=== PATIENT | male | born 1965 | race Caucasian/White ===

== ENCOUNTER → 2017-03-12 | Outpatient (CLI) | payer OTHER | LOC: M WUC 10:18 | PROVIDERS: ATTEND Physician Assistant | DX: S29.012A Strain of muscle and tendon of back wall of thorax, initial encounter (principal); X58.XXXA Exposure to other specified factors, initial encounter; Y93.9 Activity, unspecified; Y92.9 Unspecified place or not applicable; Y99.8 Other external cause status ==

== ENCOUNTER → 2019-05-04 | Outpatient (CLI) | payer BC, OTHER ==
--- NOTE | 2019-05-04 15:18 | REP ---
REASON FOR EXAM: Tobacco abuse. As per the protocol, only lung window images were sent to the read station for interpretation. There are no priors for comparison. There is evidence of biapical pleuroparenchymal scarring. There are no abnormal nodules, masses, or opacities. Grossly, the mediastinum and pulmonary les are within normal limits. Grossly, the imaged upper abdomen and imaged osseous structures are within normal limits. Lung-RADS category 1 exam. No abnormal nodule, however, there is evidence of biapical pleuroparenchymal scarring without priors for comparison. There is no revised Fleischner Society criteria on the recommendation for followup with this finding. I would recommend a 6-month followup to ensure stability. Electronically Signed by Hill Ruth DO 05/04/2019 05:08 P
== END ==
LOC: M RAD 08:49
PROVIDERS: ATTEND Physician Assistant
DX: Z12.2 Encounter for screening for malignant neoplasm of respiratory organs (principal); F17.210 Nicotine dependence, cigarettes, uncomplicated

== ENCOUNTER → 2019-05-25 | Outpatient (REF) | payer OTHER ==
[2019-05-28 00:06] LABS: A1A FOR PHENOTYPE 135 mg/dL (90-200)
== END ==
LOC: M LAB REF 13:49
PROVIDERS: ATTEND Internal Medicine Pulmonary Disease
DX: R91.8 Other nonspecific abnormal finding of lung field (principal)

== ENCOUNTER → 2019-11-30 | Outpatient (CLI) | payer BC, OTHER ==
--- NOTE | 2019-11-30 08:01 | REP ---
CT of the chest without IV contrast: Comparison is the low-dose lung screening chest CT dated 2018. There is biapical pleuroparenchymal scarring, stable and unchanged. There are no lung nodules or masses. There are no infiltrates or pleural effusions. There is no mediastinal or axillary lymph node enlargement. In the absence of IV contrast the study is insensitive for hilar lymph node enlargement. The unenhanced thoracic aorta is unremarkable. Cardiac size is normal. There is no pericardial effusion. Upper abdomen: The visualized unenhanced upper abdominal contents are unremarkable. There is no adrenal mass. Impression: There is stable biapical pleuroparenchymal scarring, unchanged. There are no lung nodules, masses, infiltrates or pleural effusions. There is no mediastinal or axillary lymph node enlargement. No significant interval change. Electronically Signed by William Miles MD 11/30/2019 07:52 A
== END ==
LOC: M RAD 07:20
PROVIDERS: ATTEND Internal Medicine Pulmonary Disease
DX: R91.8 Other nonspecific abnormal finding of lung field (principal)

== ENCOUNTER → 2020-11-28 | Outpatient (CLI) | payer BC, OTHER ==
--- NOTE | 2020-11-28 13:36 | REP ---
INDICATION: NICOTINE DEPEND COMPARISON: 11/30/2019, 05/04/2019 TECHNIQUE: Axial noncontrast images from the thoracic inlet to the upper abdomen using low-dose lung screening technique (LDCT). FINDINGS: Stable biapical scarring again noted. Lung whitt are otherwise clear and without acute consolidation, significant nodule or mass lesion. No effusion. No pneumothorax. Tracheobronchial tree is patent. IMPRESSION: Lung-RADS category 1. No suspicious nodule or mass lesion. Management recommendations include annual low-dose CT surveillance. <Electronically signed by Michael Mack > 11/28/20 [id number]
== END ==
LOC: M RAD 13:18
PROVIDERS: ATTEND Nurse Practitioner Family
DX: F17.210 Nicotine dependence, cigarettes, uncomplicated (principal)

== ENCOUNTER → 2021-10-30 | Outpatient (CLI) | payer BC, OTHER ==
[2021-10-30 14:21] LABS: ALBUMIN 3.8 GM/DL (3.2-5.2); ALT/SGPT 24 U/L (12-78); BILIRUBIN,TOTAL 0.4 MG/DL (0.2-1.0); BLOOD UREA NITROGEN 13 MG/DL (7-18); CALCIUM LEVEL 9.4 MG/DL (8.5-10.1); CARBON DIOXIDE LEVEL 30 MEQ/L (21-32); CHLORIDE LEVEL 102 MEQ/L (98-107); CHOLESTEROL LEVEL 171 MG/DL (<200); CREATININE FOR GFR 0.88 MG/DL (0.70-1.30); GLOMERULAR FILTRATION RATE > 60.0 (>56); GLUCOSE, FASTING 78 MG/DL (70-100); HDL CHOLESTEROL 45 MG/DL (>40); LDL CHOLESTEROL 103 MG/DL (<100); NON-HDL-C 126 MG/DL; POTASSIUM SERUM 3.9 MEQ/L (3.5-5.1); SODIUM LEVEL 136 MEQ/L (136-145); TOTAL PROTEIN 6.9 GM/DL (6.4-8.2); TRIGLYCERIDES LEVEL 115 MG/DL (<150)
== END ==
LOC: M LAB 13:00
PROVIDERS: ATTEND Nurse Practitioner Family
DX: E78.2 Mixed hyperlipidemia (principal)

== ENCOUNTER → 2021-12-17 | Outpatient (CLI) | payer BC, OTHER | LOC: M RAD 14:01 | PROVIDERS: ATTEND Nurse Practitioner Family | DX: Z12.2 Encounter for screening for malignant neoplasm of respiratory organs (principal); F17.210 Nicotine dependence, cigarettes, uncomplicated; R91.8 Other nonspecific abnormal finding of lung field ==

== ENCOUNTER → 2022-05-13 | Outpatient (CLI) | payer BC, OTHER ==
[~2022-05-13] MED LIST: CETI5SOL3 PO; ROSU20TA5 PO
== END ==
LOC: M LABSMTC 09:33
PROVIDERS: ATTEND Anesthesiology
DX: Z01.818 Encounter for other preprocedural examination (principal); Z11.52 Encounter for screening for COVID-19

== ENCOUNTER 2022-05-17 07:02 | Day surgery (SDC) | payer BC, OTHER ==
[~2022-05-17] VITALS: Ht 185.4 cm; Wt 72.9 kg
[~2022-05-17 07:02] MED LIST changes: +NS 1,000 ML IV ONE
[2022-05-17] MEDS ORDERED: propofoL 200 MG/20 ML VIAL As Ordered ONE ×2 (08:09→08:22)
[2022-05-17] MEDS ORDERED: LIDOCAINE 2% 100MG/5ML SDV (FOR ANES.) As Ordered ONE (08:09)
[2022-05-17] MEDS ORDERED: PHENYLephrine 500MCG 5ML (100MCG/ML) SYRINGE As Ordered ONE (08:22)
[2022-05-17 08:57] VITALS: BP 116/73
== END 2022-05-17 09:05 | disposition home or self-care (01) ==
LOC: M OPP 07:02
PROVIDERS: ATTEND Surgery
DX: D12.2 Benign neoplasm of ascending colon (principal); K63.5 Polyp of colon; R19.5 Other fecal abnormalities; E78.00 Pure hypercholesterolemia, unspecified; J44.9 Chronic obstructive pulmonary disease, unspecified; Z79.02 Long term (current) use of antithrombotics/antiplatelets; Z79.899 Other long term (current) drug therapy; Z80.0 Family history of malignant neoplasm of digestive organs; Z80.3 Family history of malignant neoplasm of breast; F17.200 Nicotine dependence, unspecified, uncomplicated
CPT/HCPCS: 45385; 88305; J2370

== ENCOUNTER → 2022-12-23 | Outpatient (CLI) | payer BC, OTHER ==
[~2022-12-23] MED LIST changes: -NS 1,000 ML IV ONE
== END ==
LOC: M RAD 07:37
PROVIDERS: ATTEND Nurse Practitioner Family
DX: Z12.2 Encounter for screening for malignant neoplasm of respiratory organs (principal); F17.210 Nicotine dependence, cigarettes, uncomplicated; R91.8 Other nonspecific abnormal finding of lung field

== ENCOUNTER → 2024-01-12 | Outpatient (CLI) | payer BC ==
[~2024-01-12] MED LIST changes: -ROSU20TA5 PO; +ROSU20TA61 PO
== END ==
LOC: M RAD 07:46
PROVIDERS: ATTEND Nurse Practitioner Family
DX: Z12.2 Encounter for screening for malignant neoplasm of respiratory organs (principal); Z87.891 Personal history of nicotine dependence; R91.1 Solitary pulmonary nodule

== ENCOUNTER → 2025-01-19 | Outpatient (CLI) | payer BC ==
[~2025-01-19] MED LIST changes: -ROSU20TA61 PO; +ROSU20TA86 PO
== END ==
LOC: M RAD 08:43
PROVIDERS: ATTEND Nurse Practitioner Family
DX: Z12.2 Encounter for screening for malignant neoplasm of respiratory organs (principal); Z87.891 Personal history of nicotine dependence; J43.9 Emphysema, unspecified; J84.9 Interstitial pulmonary disease, unspecified; J47.9 Bronchiectasis, uncomplicated

== ENCOUNTER 2025-04-15 08:10 | Day surgery (SDC) | payer BC ==
[~2025-04-15] VITALS: Ht 185.4 cm; Wt 75.2 kg
[2025-04-15] MEDS ORDERED: LIDOCAINE 2% 100 MG/5 ML SDV (FOR ANES.) As Ordered ONE (09:15)
[2025-04-15 09:38] VITALS: TEMP 97.7
[2025-04-15 10:01] VITALS: BP 126/73; O2SAT 96
== END 2025-04-15 10:03 | disposition home or self-care (01) ==
LOC: M OPP 08:10
PROVIDERS: ATTEND Surgery
DX: K63.5 Polyp of colon (principal); Z86.0100 Personal history of colon polyps, unspecified; E78.00 Pure hypercholesterolemia, unspecified; J44.9 Chronic obstructive pulmonary disease, unspecified; Z87.891 Personal history of nicotine dependence; Z79.899 Other long term (current) drug therapy